=== PATIENT | female | born 1990 | race Caucasian/White ===

== ENCOUNTER 2020-06-23 10:14 | Emergency (ER) | payer BC, OTHER ==
[~2020-06-23] VITALS: Ht 177.8 cm; Wt 77.3 kg
[2020-06-23] MEDS ORDERED: LORazepam 2 MG/ML, 1ML ONE (10:43)
[2020-06-23 10:53] LABS: BASOPHILS % (AUTO) 1 % (0-1); EOSINOPHILS % (AUTO) 1 % (1-7); LYMPHOCYTES % (AUTO) 20 % (22-44); MEAN CORPUSCULAR HGB CONC 34.7 g/dL (32.4-35.8); MEAN PLATELET VOLUME 8.4 fL (7.4-10.4); MONOCYTES % (AUTO) 5 % (2-9); NEUTROPHILS % (AUTO) 73 % (42-75); PLATELET COUNT 218 x10^3/uL (130-400); RED BLOOD COUNT 4.81 x10^6/uL (3.82-5.3); RED CELL DISTRIBUTION WIDTH 13.2 % (9.6-15.2)
[2020-06-23 10:54] LABS: MD NO
--- NOTE | 2020-06-23 10:57 | NUR ---
PT TRANSFER TO WC TO BR. PT FORGOT TO GIVE UA SAMPLE. SO WITH PT IN BR. PT VIA WC TO BED.
[2020-06-23 11:05] LABS: ALANINE AMINOTRANSFERASE 26 U/L (12-78); ALBUMIN 4.1 g/dL (3.4-5.0); ANION GAP 13 mmol/L (5-15); CALCIUM 9.1 mg/dL (8.5-10.1); CHLORIDE 109 mmol/L (98-107); CREATININE 0.86 mg/dL (0.55-1.02)
--- NOTE | 2020-06-23 11:07 | NUR ---
PT STATES TOLTAL RELIEF FROM PAIN, DIZZINESS, PHOTOPHOBIA AFTER MED ADMINISTRATION.
[2020-06-23 11:10] LABS: ALKALINE PHOSPHATASE 58 U/L (45-117); BILIRUBIN,TOTAL 0.4 mg/dL (0.2-1.0); T4 (THYROXINE) 8.9 mcg/dL (4.8-13.9); TOTAL PROTEIN 7.5 g/dL (6.4-8.2); TROPONIN I < 0.015 ng/mL (0.000-0.045)
[2020-06-23] MEDS ORDERED: SODIUM CHLORIDE 0.9% 1,000 ML IV ONE (11:30)
[2020-06-23] MEDS ORDERED: SODIUM CHLORIDE FLUSH 10ML SYR IVF ONE (11:30)
[2020-06-23] MEDS ORDERED: SODIUM CHLORIDE 0.9% 1,000ML IVBOLUS ONE (11:30)
[2020-06-23] MEDS ORDERED: LORazepam 2 MG/ML, 1ML IVPush ONE (11:30)
[2020-06-23 12:30] VITALS: BP 116/81
== END 2020-06-23 13:15 | disposition home or self-care (01) ==
LOC: ED 12:28
DX: R55 Syncope and collapse (principal); R42 Dizziness and giddiness; R00.0 Tachycardia, unspecified; I51.7 Cardiomegaly
CPT/HCPCS: 36415; 80053; 84436; 84443; 84484; 84703; 85025; 93005; 96361; 96374; 99284; J2060; J7030

== ENCOUNTER 2020-07-18 09:53 | Day surgery (SDC) | payer BC ==
[~2020-07-18] VITALS: Ht 177.8 cm; Wt 77.3 kg
[2020-07-18 10:13] VITALS: BP 106/73
[2020-07-18] MEDS ORDERED: MELA10CA PO (10:30)
[2020-07-18] MEDS ORDERED: ASCO500T8 PO (10:30)
[2020-07-18] MEDS ORDERED: SERT50TA PO (10:30)
[2020-07-18] MEDS ORDERED: MEDR150D3 IM (10:30)
[2020-07-18] MEDS ORDERED: CLON-364 PO (10:30)
[2020-07-18] MEDS ORDERED: HYDR200T72 PO (10:30)
[2020-07-18] MEDS ORDERED: CHOL200074 PO (10:30)
[2020-07-18] MEDS ORDERED: NORT50CA52 PO (10:30)
[2020-07-18] MEDS ORDERED: DICL50TA2 PO (10:31)
[2020-07-18] MEDS ORDERED: ISOPROTERENOL 0.2MG/ML, 5ML ONE (11:16)
== END 2020-07-18 11:56 | disposition home or self-care (01) ==
LOC: CACL 09:53
PROVIDERS: ATTEND Internal Medicine Cardiovascular Disease
DX: R55 Syncope and collapse (principal); R00.0 Tachycardia, unspecified; F41.9 Anxiety disorder, unspecified; F32.9 Major depressive disorder, single episode, unspecified; M32.9 Systemic lupus erythematosus, unspecified; E66.3 Overweight; Z68.23 Body mass index [BMI] 23.0-23.9, adult; Z79.899 Other long term (current) drug therapy; Z88.8 Allergy status to other drugs, medicaments and biological substances; Z98.890 Other specified postprocedural states; Z82.49 Family history of ischemic heart disease and other diseases of the circulatory system
CPT/HCPCS: 93660